=== PATIENT | female | born 1995 | race Caucasian/White ===

== ENCOUNTER 2019-02-17 03:41 | Outpatient (CLI) | payer OTHER ==
[2019-02-17] MEDS: ACETAMINOPHEN 325 MG TAB PO (04:13)
== END 2019-02-17 06:35 | disposition home or self-care (01) ==
LOC: OBT 03:41 → L-D 03:41 → OBT 06:35
DX: O36.8120 Decreased fetal movements, second trimester, not applicable or unspecified (principal); O9A.212 Injury, poisoning and certain other consequences of external causes complicating pregnancy, second trimester; T14.8XXA Other injury of unspecified body region, initial encounter; M54.9 Dorsalgia, unspecified; M54.2 Cervicalgia; M79.603 Pain in arm, unspecified; Y92.89 Other specified places as the place of occurrence of the external cause; Z3A.22 22 weeks gestation of pregnancy
CPT/HCPCS: 76815; 76817